=== PATIENT | male | born 1980 | race Caucasian/White ===

== ENCOUNTER 2017-04-16 10:31 | Inpatient (IN) | payer MEDICARE ==
[2017-04-16 10:38] VITALS: BP 149/89; PULSE 87; TEMP 97.9; BMI 51.6
[2017-04-16] MEDS ORDERED: ACETAMINOPHEN 325 MG TABLET (FP) PO ONE (11:41)
--- NOTE | 2017-04-16 11:48 | PDOC ---
History of Present Illness <Bethany Israel - Last Filed: 04/16/17 13:51> - General History Source: Patient - History of Present Illness Timing/Duration: reports: getting worse Abdominal Pain Onset Location: reports: flank <Enid Garcia - Last Filed: 04/16/17 16:58> - General Chief Complaint: Vomiting Blood Stated Complaint: KIDNEY PAIN Time Seen by Provider: 04/16/17 11:35 Past History <Bethany Israel - Last Filed: 04/16/17 13:51> - Past Medical History Disorders: Yes (POLYCYSTIC KIDNEY DISEASE, CRI) HTN: Yes - Psycho/Social/Smoking Cessation Hx Anxiety: No Suicidal Ideation: No Smoking History: Current every day smoker Have you smoked in the past 12 months: Yes Number of Cigarettes Smoked Daily: 10 Information on smoking cessation initiated: Yes 'Breaking Loose' booklet given: 04/16/17 Hx Alcohol Use: No Drug/Substance Use Hx: No Substance Use Type: None <Enid Garcia - Last Filed: 04/16/17 16:58> - Past Medical History Allergies/Adverse Reactions: Allergies Allergy/AdvReac Type Severity Reaction Status Date / Time No Known Allergies Allergy Verified 04/16/17 10:33 Home Medications: Ambulatory Orders Nifedipine 10 mg PO DAILY 04/16/17 Review of Systems - Review of Systems Constitutional: No: Chills, Fever ABD/GI: Yes: Nausea, Vomiting. No: Constipated, Diarrhea : Yes: Flank Pain. No: Burning, Dysuria, Frequency, Hematuria <Enid Garcia - Last Filed: 04/16/17 16:58> *Physical Exam - Vital Signs Last Vital Signs Temp Pulse Resp BP Pulse Ox 97.9 F 87 18 149/89 100 04/16/17 10:35 04/16/17 10:35 04/16/17 10:35 04/16/17 10:35 04/16/17 10:35 <Bethany Israel - Last Filed: 04/16/17 13:51> - Vital Signs Last Vital Signs Temp Pulse Resp BP Pulse Ox 97.9 F 87 18 149/89 100 04/16/17 10:35 04/16/17 10:35 04/16/17 10:35 04/16/17 10:35 04/16/17 10:35 - Physical Exam General Appearance: Yes: Appropriately Dressed. No: Apparent Distress HEENT: positive: Normal Voice Neck: positive: Supple Respiratory/Chest: negative: Respiratory Distress Gastrointestinal/Abdominal: positive: Tender (mild ttp to L flank), Soft Musculoskeletal: positive: CVA Tenderness (R) Extremity: positive: Normal Inspection Integumentary: positive: Dry, Warm Neurologic: positive: Fully Oriented, Alert, Normal Mood/Affect <Enid Garcia - Last Filed: 04/16/17 16:58> ED Treatment Course - LABORATORY CBC & Chemistry Diagram: 04/16/17 12:30 04/16/17 12:30 - ADDITIONAL ORDERS Additional order review: Laboratory Results 04/16/17 12:30 Sodium 142 Potassium 4.5 Chloride 108 H Carbon Dioxide 25 Anion Gap 9 BUN 43 H Creatinine 3.0 H Creat Clearance w eGFR 23.80 Random Glucose 93 Calcium 9.1 Total Bilirubin 0.6 AST 26 ALT 30 Alkaline Phosphatase 116 Total Protein 7.4 Albumin 3.7 - Medications Given in the ED: ED Medications Discontinued Medications Generic Name Dose Route Start Last Admin Trade Name Freq PRN Reason Stop Dose Admin Acetaminophen 650 mg 04/16/17 11:41 04/16/17 12:44 Tylenol - PO 04/16/17 11:42 650 mg ONCE ONE Administration Sodium Chloride 1,000 mls @ 1,000 mls/hr 04/16/17 12:11 04/16/17 12:44 Normal Saline - IV 04/16/17 13:10 1,000 mls/hr ASDIR STA Administration <Bethany Israel - Last Filed: 04/16/17 13:51> - LABORATORY CBC & Chemistry Diagram: 04/16/17 12:30 04/16/17 12:30 <Enid Gacria - Last Filed: 04/16/17 16:58> Medical Decision Making - Medical Decision Making 04/16/17 13:51 Dr. Frost was paged and notified via phone service. <Bethany Israel - Last Filed: 04/16/17 13:51> - Medical Decision Making 04/16/17 12:07 37-year-old male, morbid obesity, hypertension, not currently on meds secondary to insurance issues, endorses history of polycystic kidneys bilaterally p/w b/l flank pain since this a.m, R>>Left with multiple episodes of nausea, vomiting with blood streaks in vomitus per patient. No acute symptoms, hematuria, fever or chills. States patient states he had with similar symptoms in the past and was told that "one of my cyst burst" per pt See exam Polycystic kidneys w/ b/l flank pain and n/v -pain control -IVF -labs -CT r/o acute pathology, i.e stone, etc 04/16/17 15:02 Cr 3, new for pt. CT read as signs c/w known h/o polycystic kidneys w/ ?complex cysts, no hydro or stone. Renal aware and will come evaluate pt in ED. Will contact Dr Baig and admit at this time 04/16/17 15:04 04/16/17 15:39 Pt requesting to leave and go to another ED because "The ED is filthy and I'm not comfortable here" per pt. Medical risks explained to pt but sill requesting to leave. Appears to have capacity. I contacted pt's pmd, Dr Baig and made aware, states if pt is discharged, can be seen in the office tomorrow 04/16/17 16:04 After IV was removed, pt now changes his mind and wants to be admitted. ED nurse aware 04/16/17 16:53 04/16/17 16:58 Renal at bedside to evaluate pt <Enid Garcia - Last Filed: 04/16/17 16:58> *DC/Admit/Observation/Transfer <Bethany Israel - Last Filed: 04/16/17 13:51> - Discharge Dispostion Admit: Yes <Enid Garcia - Last Filed: 04/16/17 16:58> Diagnosis at time of Disposition: Polycystic kidney disease ARF (acute renal failure) Qualifiers: Acute renal failure type: unspecified Qualified Code(s): N17.9 - Acute kidney failure, unspecified - Discharge Dispostion Condition at time of disposition: Fair - Referrals
[2017-04-16] MEDS ORDERED: SODIUM CHLORIDE 1,000 ML IV STA (12:11)
--- NOTE | 2017-04-16 12:47 | PDOC ---
*Physical Exam - Vital Signs Last Vital Signs Temp Pulse Resp BP Pulse Ox 97.9 F 87 18 149/89 100 04/16/17 10:35 04/16/17 10:35 04/16/17 10:35 04/16/17 10:35 04/16/17 10:35 - Physical Exam General Appearance: Yes: Nourished, Appropriately Dressed. No: Apparent Distress, Disheveled HEENT: positive: Normal ENT Inspection, Normal Voice Neck: positive: Trachea midline. negative: Tender Respiratory/Chest: positive: Lungs Clear, Normal Breath Sounds. negative: Respiratory Distress Cardiovascular: positive: Regular Rhythm, Regular Rate, S1, S2. negative: Edema , JVD Gastrointestinal/Abdominal: positive: Normal Bowel Sounds, Other (obese abd, mild right CVA tenderness). negative: Tender, Flat Musculoskeletal: positive: Normal Inspection, CVA Tenderness (R) Extremity: positive: Normal Capillary Refill, Normal Inspection Integumentary: positive: Normal Color, Dry, Warm Neurologic: positive: Fully Oriented, Alert, Normal Mood/Affect ED Treatment Course - LABORATORY CBC & Chemistry Diagram: 04/16/17 12:30 04/16/17 12:30 Medical Decision Making - Medical Decision Making 04/16/17 12:44 37 yo male h/o polycystic kidney disease, HTN ( supposed to be on nefedipine 90 mg , not taking bc uninsured, unemployed) here with c/o bilateral flank pain. right worse than left. has had similar in the past many years ago when a cyst burst. 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 no f/c no hematuria. no dysuria. no n/v no other complaints. pain mild constant , no radiation. differential: ruptured cyst, enlarge kidney causing pain, infection such as pyelo, renal colic, plan cbc lytes ua ivf, pain control ct a/p reasess. pt seen and examined, discussed with PA, agree with plan. 04/16/17 16:51 d/w pt regarding findings of elevated creatinine, concerns for followup due to uninsurance. risk and benefit of admission discussed at length. explained pt results including ct scan , and fact that nephrology has already been consulted. pt agreeable to stay in hospital at this point. would like social work consult for emergency medicaid application. *DC/Admit/Observation/Transfer Diagnosis at time of Disposition: Polycystic kidney disease ARF (acute renal failure) Qualifiers: Acute renal failure type: unspecified Qualified Code(s): N17.9 - Acute kidney failure, unspecified - Discharge Dispostion Condition at time of disposition: Fair - Referrals Referrals: Daljit Baig MD [Primary Care Provider] -
[2017-04-16] MEDS ORDERED: ACETAMINOPHEN 325 MG TABLET (FP) ONE (13:23)
[2017-04-16 13:25] LABS: ALBUMIN 3.7 g/dl (3.4-5.0); BILIRUBIN,TOTAL 0.6 mg/dL (0.2-1.0); CALCIUM 9.1 mg/dL (8.5-10.1); COCKROFT - GAULT 78.62; TOT PROT 7.4 g/dl (6.4-8.2)
[2017-04-16 14:10] LABS: URINE APPEARANCE CLEAR; URINE BILIRUBIN NEGATIVE (NEGATIVE); URINE BLOOD 1+ (NEGATIVE); URINE COLOR STRAW; URINE GLUCOSE (UA) NEGATIVE (NEGATIVE); URINE KETONE NEGATIVE (NEGATIVE); URINE LEUK ESTERASE NEGATIVE (NEGATIVE); URINE NITRITE NEGATIVE (NEGATIVE); URINE PROTEIN 1+ (NEGATIVE); URINE UROBILINOGEN NEGATIVE E.U./dl (0.2-1.0)
[2017-04-16 14:12] LABS: URINE MUCUS RARE; URINE RBC <1 /hpf (0-3); URINE WBC 2 /hpf (3-5)
[2017-04-16 17:11] LABS: BASOPHIL 0.8 % (0-2.0); EOSINOPHIL 2.9 % (0-4.5); MCHC 33.7 g/dl (32.0-35.9); MEAN PLT VOLUME 10.1 fl (7.5-11.1); NEUTROPHILS 69.9 % (42.8-82.8); PLATELET COUNT 195 K/MM3 (134-434); RDW 13.8 % (11.9-15.9); WHITE BLOOD COUNT 11.2 K/mm3 (4.0-10.0)
--- NOTE | 2017-04-16 18:01 | PDOC ---
*Physical Exam - Vital Signs Last Vital Signs Temp Pulse Resp BP Pulse Ox 97.9 F 87 18 149/89 100 04/16/17 10:35 04/16/17 10:35 04/16/17 10:35 04/16/17 10:35 04/16/17 10:35 ED Treatment Course - LABORATORY CBC & Chemistry Diagram: 04/16/17 12:30 04/16/17 12:30 - ADDITIONAL ORDERS Additional order review: Laboratory Results 04/16/17 04/16/17 14:00 12:30 Sodium 142 Potassium 4.5 Chloride 108 H Carbon Dioxide 25 Anion Gap 9 BUN 43 H Creatinine 3.0 H Creat Clearance w eGFR 23.80 Random Glucose 93 Calcium 9.1 Total Bilirubin 0.6 AST 26 ALT 30 Alkaline Phosphatase 116 Total Protein 7.4 Albumin 3.7 Urine Color Straw Urine Appearance Clear Urine pH 5.0 Ur Specific [place] 1.010 Urine Protein 1+ H Urine Glucose (UA) Negative Urine Ketones Negative Urine Blood 1+ H Urine Nitrite Negative Urine Bilirubin Negative Urine Urobilinogen Negative Ur Leukocyte Esterase Negative Urine RBC <1 Urine WBC 2 Ur Epithelial Cells Rare Urine Mucus Rare 04/16/17 12:30 RBC 5.20 MCV 92.0 MCHC 33.7 RDW 13.8 MPV 10.1 Neutrophils % 69.9 Lymphocytes % 19.2 Monocytes % 7.2 Eosinophils % 2.9 Basophils % 0.8 - RADIOLOGY Radiology Studies Ordered: Category Date Time Status ABDOMEN & PELVIS CT W/O CONTR [CT] Stat CT Scan 04/16/17 12:06 Completed - Medications Given in the ED: ED Medications Discontinued Medications Generic Name Dose Route Start Last Admin Trade Name Omar PRN Reason Stop Dose Admin Acetaminophen 650 mg 04/16/17 11:41 04/16/17 12:44 Tylenol - PO 04/16/17 11:42 650 mg ONCE ONE Administration Sodium Chloride 1,000 mls @ 1,000 mls/hr 04/16/17 12:11 04/16/17 12:44 Normal Saline - IV 04/16/17 13:10 1,000 mls/hr ASDIR STA Administration Medical Decision Making - Medical Decision Making 04/16/17 18:01 Pt now states he wants to leave but refuses to sign AMA form and walked out of ED without discharge papers. Does not have IV in place. Pt was told earlier that if he left ED, can walk into Dr Baig office tomorrow. ED attg and ED nurse aware *DC/Admit/Observation/Transfer Diagnosis at time of Disposition: Polycystic kidney disease ARF (acute renal failure) Qualifiers: Acute renal failure type: unspecified Qualified Code(s): N17.9 - Acute kidney failure, unspecified - Discharge Dispostion Disposition: AGAINST MEDICAL ADVICE Condition at time of disposition: Fair
--- NOTE | 2017-04-16 21:13 | CONSULT ---
Consult Consult Specialty:: Nephrology Reason for Consultation:: YING - History of Present Illness Chief Complaint: flank pain History of Present Illness: Pt is a 37 year old male who presents to the ER complaining of bilateral flank pain. He says the pain began a few days ago. He has had pains like this in the past. He has history of polycystic kidney disease. 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 He says he does not have medical insurance and has not had any bloodwork done in years because he can not afford it. He also says he is not taking his anit-hypertensives. He was on nifedipine in the past. He denies fevers or chills. He denies dysuria or hematuria. - History Source History Provided By: Patient, Medical Record - Past Medical History Cardio/Vascular: Yes: HTN Renal/: Yes: Other (polycystic kidney disease) - Alcohol/Substance Use Hx Alcohol Use: No - Smoking History Smoking history: Current every day smoker Have you smoked in the past 12 months: Yes Aproximately how many cigarettes per day: 10 Home Medications - Allergies Allergies/Adverse Reactions: Allergies Allergy/AdvReac Type Severity Reaction Status Date / Time No Known Allergies Allergy Verified 04/16/17 10:33 - Home Medications Home Medications: Ambulatory Orders Nifedipine 10 mg PO DAILY 04/16/17 Family Disease History - Family Disease History Family History: Denies Review of Systems - Review of Systems Constitutional: reports: No Symptoms Eyes: reports: No Symptoms HENT: reports: No Symptoms Neck: reports: No Symptoms Cardiovascular: reports: No Symptoms Respiratory: reports: No Symptoms Gastrointestinal: reports: No Symptoms Genitourinary: reports: Flank Pain. denies: Dysuria, Hematuria Musculoskeletal: reports: No Symptoms Integumentary: reports: No Symptoms Neurological: reports: No Symptoms Endocrine: reports: No Symptoms Physical Exam Vital Signs: Vital Signs Temperature 97.9 F 04/16/17 10:35 Pulse Rate 87 04/16/17 10:35 Respiratory Rate 18 04/16/17 10:35 Blood Pressure 149/89 04/16/17 10:35 O2 Sat by Pulse Oximetry (%) 100 04/16/17 10:35 Constitutional: Yes: Anxious Eyes: Yes: Conjunctiva Clear HENT: Yes: Atraumatic Cardiovascular: Yes: S1, S2 Respiratory: Yes: CTA Bilaterally Gastrointestinal: Yes: Soft, Abdomen, Obese Renal/: Yes: CVA Tenderness - Left, CVA Tenderness - Right Musculoskeletal: Yes: WNL Extremities: Yes: WNL Edema: No Integumentary: Yes: Tattoos Neurological: Yes: Oriented Psychiatric: Yes: Oriented Labs: Laboratory Tests 04/16/17 04/16/17 04/16/17 12:30 12:30 14:00 WBC 11.2 H Hgb 16.1 Plt Count 195 Sodium 142 Potassium 4.5 Chloride 108 H Carbon Dioxide 25 Anion Gap 9 BUN 43 H Creatinine 3.0 H Urine Color Straw Urine Appearance Clear Urine pH 5.0 Ur Specific [place] 1.010 Urine Protein 1+ H Urine Glucose (UA) Negative Urine Ketones Negative Urine Blood 1+ H Urine Nitrite Negative Urine Bilirubin Negative Urine Urobilinogen Negative Ur Leukocyte Esterase Negative Imaging - Results Cat Scan: Report Reviewed (PKD, there are complex cysts) Problem List - Problems (1) Polycystic kidney disease Code(s): Q61.3 - POLYCYSTIC KIDNEY, UNSPECIFIED (2) CKD (chronic kidney disease) Code(s): N18.9 - CHRONIC KIDNEY DISEASE, UNSPECIFIED (3) HTN (hypertension) Code(s): I10 - ESSENTIAL (PRIMARY) HYPERTENSION (4) Obesity Code(s): E66.9 - OBESITY, UNSPECIFIED Assessment/Plan Impression 1. PKD 2. CKD with unclear baseline 3. complex cysts 4. htn 5. obesity Plan - pt will need outpt follow up - there are complex cysts on the ct scan which will need to be followed as well - recommend compliance with bp meds, discussed importance of BP control - will need urology follow up for complex cysts - recommend weight loss as well - will follow Dr Chamorro
== END 2017-04-16 17:30 | disposition left against medical advice (07) | DRG 468 ==
LOC: JER 10:31 → JERBED 16:04 → UNDOADMIN 16:04
PROVIDERS: ADMIT Internal Medicine; ATTEND Internal Medicine
DX: Q61.3 Polycystic kidney, unspecified (principal); N17.9 Acute kidney failure, unspecified; E66.01 Morbid (severe) obesity due to excess calories; Z68.43 Body mass index [BMI] 50.0-59.9, adult; Z72.0 Tobacco use; I12.9 Hypertensive chronic kidney disease with stage 1 through stage 4 chronic kidney disease, or unspecified chronic kidney disease; N18.9 Chronic kidney disease, unspecified
CPT/HCPCS: 36415; 74176-TC; 80053; 81003; 81015; 85025; 99282-25